=== PATIENT | female | born 2000 | race Caucasian/White ===

== ENCOUNTER 2021-03-04 19:52 | Emergency (ER) | payer OTHER, SELFPAY ==
[2021-03-04 19:52] VITALS: BP 117/74; PULSE 126; RESP 18; TEMP 36.8; O2SAT 98; BMI 18.3
--- NOTE | 2021-03-04 20:13 | EKG12_ITS ---
Test Reason : DYSRHYTHMIA Blood Pressure : / mmHG Vent. Rate : 100 BPM Atrial Rate : 100 BPM P-R Int : 156 ms QRS Dur : 066 ms QT Int : 328 ms P-R-T Axes : 072 084 063 degrees QTc Int : 423 ms Normal sinus rhythm Normal ECG Confirmed by AMPARO QURESHI, JUAN PABLO ([id number]), visual effects editor DENNIS BRIZUELA ([id number]) on 03/05/2021 10:12:37 AM Referred By: KIM Confirmed By:JUAN PABLO CHRISTENSEN MD
--- NOTE | 2021-03-04 20:14 | ED.VIS.DYS ---
HPI History of Present Illness Chief Complaint: Shortness of Breath Detail of Chief Complaint: Shortness of breath Informant: patient Narrative Narrative: Patient presents to the emergency department complaint of shortness of breath that started few hours ago with gradual onset. Patient states she came in from outside and noticed that she was quite winded. She denies any chest pain. She does feel like her heart is racing. No history of anxiety or panic attacks. Patient states that she had COVID about 3 weeks ago and has since tested negative. Patient is never had symptoms like this before. No history of asthma. Patient is vaccinated against COVID. She does not smoke. PFSH PFS Medical History no medical history Allergy/AdvReac Type Severity Reaction Status Date / Time No Known Allergies Allergy Verified 03/04/21 19:54 Surgical History no surgical history Social History Smoking Status: Never smoker ROS [facility] ED Constitutional Constitutional ED: Reports systems reviewed and no addt'l complaints, except as documented; Denies body ache(s), change in weight or chills Eyes Eyes: Denies acute decrease in peripheral vision, change in vision, double vision or loss of vision ENT ENT ED: Reports none; Denies ear pain, lip swelling, loss taste/smell, neck pain, otalgia or sore throat Cardiovascular Cardiovascular: Reports none and racing heartbeat; Denies abdominal pain, chest pain with activity, leg edema, lightheadedness, palpitations, rapid heart rate or syncope Respiratory/Chest Respiratory/Chest: Reports none and dyspnea; Denies change in mental status, dry cough, hemoptysis, shortness of breath at rest or shortness of breath with exertion Gastrointestinal Gastrointestinal: Reports none; Denies abdominal pain, change in stool character, diarrhea, hematemesis, hematochezia, melena, rectal bleeding or vomiting Genitourinary Genitourinary ED: Reports none; Denies abdominal discomfort, anuria, dysuria, genital pain or polyuria Musculoskeletal Musculoskeletal: Reports none; Denies arthralgias, back pain, difficulty walking, extremity pain, muscle weakness or myalgias Integumentary Reports none; Denies abscess or rash Neurologic Neurologic: Reports none; Denies abnormal gait, confusion, focal weakness, frequent falls, headache(s), loss of vision, numbness, paresthesias, radicular pain, vertigo or weakness Psychiatric Psychiatric: Reports systems reviewed and no addt'l complaints, except as documented and none; Denies behavioral changes, confusion, difficulty concentrating, hallucinations, suicidal ideation, tactile hallucinations or visual hallucinations Endocrine Endocrinology: Denies none, cold intolerance, excessive sweating, fatigue or heat intolerance Hematologic/Lymphatic Hematologic/Lymphatic: Reports none; Denies anemia, easy bleeding or easy bruising Allergic/Immunologic Allergic/Immunologic ED: Denies as per HPI, none, lip swelling, mouth swelling, throat swelling, tongue swelling or hives EXAM Physical Exam Const Vital Signs: 03/04/21 19:52 03/04/21 20:34 Temperature 98.2 F Temperature Source Temporal Pulse Rate 126 H Respiratory Rate 18 Respiratory Effort Short of Breath Blood Pressure 117/74 Blood Pressure Mean 88 Pulse Ox 98 Oxygen Delivery Method Room Air Room Air Positive well nourished and well developed General Appearance ED: well developed and NAD HEENT Reports TM's clear and moist mucous membranes normocephalic and atraumatic; Negative for trauma or tenderness Tympanic Membrane ED: Yes TM's clear Eyes PERRL and EOMs intact bilaterally General Eye ED: Negative for pale conjunctiva or scleral icterus Neck no lymphadenopathy, supple and no JVD General: Negative for tenderness Chest Wall inspection of chest normal and palpation of chest normal Chest: Negative for tenderness Resp normal respiratory effort and clear to auscultation bilaterally Effort and Inspection: Negative for respiratory distress or pain with movement Auscultation: Negative for rhonchi, wheezes or diminished lung sounds Cardio S1 normal heart sound, S2 normal heart sound and no murmurs Rate: tachycardic Peripheral Pulses: pulses 2+ throughout GI normal to inspection, nondistended, normoactive bowel sounds, soft to palpation, non-tender, non-distended and no masses Back/Spine no CVA tenderness and no thoracic nor lumbar tenderness Extremity normal to inspection General Extremety ED: Negative for edema General Extremity: Negative for edema Neuro oriented x3, CN's II-XII intact bilaterally, no sensory deficits noted and gait normal Sensorium / Orientation: awake, alert, oriented to person, oriented to place and oriented to time Motor Exam: strength 5/5 throughout and strength abnormal Psych mental status grossly normal Skin no rashes or lesions noted and no wounds MDM MDM MDM Narrative Medical decision making narrative: IV line established on arrival. Patient had an EKG that was unremarkable. No evidence of pericarditis. Patient had normal lab work including D-dimer and troponin. Chest x-ray obtained was unremarkable. Patient did receive an albuterol and Atrovent aerosol x1 and clinically she did feel improved. She seemed to have more movement. At this point I suspect likely reactive airway disease as patient came in from the cold and that is when her symptoms began slowly. She'll be dispensed an albuterol MDI for home. Patient advised to follow-up with her primary care physician within next 3 to 5 days. She is advised to return if increasing shortness of breath or condition should worsen anyway. Lab Data Attestation: I reviewed the patient's lab results. Labs: Laboratory Results - last 24 hr 03/04/21 03/04/21 03/04/21 20:31 20:31 20:31 WBC 9.6 RBC 4.13 L Hgb 12.1 Hct 35.4 L MCV 85.7 MCH 29.3 MCHC 34.2 RDW Std Deviation 36.[address] 11.7 Plt Count 355 MPV 9.6 Immature Gran % (Auto) 0.100 Neut % (Auto) 66.7 Lymph % (Auto) 26.6 [place] % (Auto) 5.3 Eos % (Auto) 0.7 Baso % (Auto) 0.6 Absolute Neuts (auto) 6.4 Absolute Lymphs (auto) 2.56 Nucleated RBC % 0 D-Dimer Quant (PE/DVT) 0.28 Sodium 140 Potassium 3.7 Chloride 107 Carbon Dioxide 26.0 Anion Gap 7 BUN 9 Creatinine 0.67 Estim Creat Clear Calc 106.38 Est GFR (MDRD) Af Amer 145 Est GFR (MDRD) Non-Af 120 BUN/Creatinine Ratio 13.4 Glucose 101 Calcium 9.0 Troponin I High Sens 5 Radiography Chest X-Ray - ED: 1 View Diagnostic Testing: Clinical Impression(s) from Imaging Studies Chest X-Ray 03/04/21 20:36 IMPRESSION: There are no acute findings. Electronically Signed: Rhys Collier MD at 20:49 EST , Service support , 1 view chest x-ray obtained interpreted by myself as no acute disease process. Radiology in agreement. EKG Initial EKG: Attestation: I personally reviewed and interpreted this EKG as follows: Comments: Sinus rhythm with a ventricular rate of 100 bpm with no acute ST segment changes Prior EKG tracings: not available for review Discharge Plan Triage Chief Complaint: Shortness of Breath ED Provider: Ginette Gauthier Dx/Rx/DC Orders Clinical Impression: Acute dyspnea, RAD (reactive airway disease) Instructions: ED Dyspnea, ED Inhaler Use Primary Care Provider: [facility] ,Out of Referrals: [facility] Doctor,Out of [Primary Care Provider] - Activity Restrictions/Additional Instructions: Follow-up with your primary care physician in 3 to 5 days. Return if increasing shortness of breath or condition should worsen anyway. Disposition Disposition: Home, Self Care
[2021-03-04 20:34] VITALS: O2SAT 96
[2021-03-04] MEDS: 0.9% Normal Saline 1,000 ML 150 ML IV (20:35)
--- NOTE | 2021-03-04 20:36 | RAD_ITS ---
STUDY: X-RAY CHEST REASON FOR EXAM: Female, 20 years old. CHEST PAIN dyspnea TECHNIQUE: XR Chest 1 View COMPARISON: None FINDINGS: There is no demonstrated pleural abnormality. Normal size heart. Normal mediastinum and zi. Normal visualized pulmonary arteries. Normal visualized aortic arch and descending thoracic aorta. Normal visualized thoracic spine. Normal visualized ribs, clavicles, and shoulders. There is no demonstrated abnormality of the visualized soft tissue structures of the upper abdomen. RAD/Chest 1 View (Portable) IMPRESSION: There are no acute findings. Electronically Signed: Rhys Collier MD at 20:49 EST , Service support ,
[2021-03-04 20:43] LABS: Absolute Lymphocyte Count 2.56 X10^3/uL (0.83-4.51); Absolute Neutrophil Count 6.4 X10^3/uL (2.0-7.7); Basophil# 0.06 X10^3/uL; Basophil% 0.6 % (0-1); Eosinophil# 0.07 X10^3/uL; Eosinophils% 0.7 % (0-5); Hematocrit 35.4 % (37-47); Hemoglobin 12.1 g/dL (12.0-15.0); Lymphocyte # 2.56 X10^3/ul (0.83-4.51); Lymphocyte % 26.6 % (19-41); Mean Corp Hgb Conc 34.2 g/dL (32-36); Mean Corpuscular Hgb 29.3 pg (27.0-32.0); Mean Corpuscular Volume 85.7 fL (81-99); Mean Platelet Vol. 9.6 fl (6.2-12.0); Monocyte# 0.51 X10^3/uL; Monocyte% 5.3 % (0-10); NRBC Flagged by Analyzer 0 % (0-5); Neutrophil # 6.41 X10^3/uL (2.7-7.7); Neutrophil % 66.7 % (47-70); Platelet Count 355 K/mm3 (150-450); RBC Distribution Width CV 11.7 % (11.6-14.6); RBC Distribution Width SD 36.2 fl (35.1-43.9); Red Blood Count 4.13 M/mm3 (4.2-5.4); White Blood Count 9.6 K/mm3 (4.4-11.0)
[2021-03-04 20:53] LABS: D-Dimer Quantitative (DVT/PE) 0.28 FEU/ug/m (0.27-0.49)
[2021-03-04 21:03] LABS: Anion Gap 7 (5-15); BUN 9 mg/dL (7-18); BUN/Creat Ratio 13.4 RATIO (10-20); Chloride 107 mmol/L (98-107); Creatinine, Serum 0.67 mg/dL (0.55-1.02); EST Glomerular Filtration Rate 120 mL/min (>60); Est Glom Filt Rate - Afr Amer 145 mL/min (>60); Estimated Creatinine Clearance 106.38 ml/min; Glucose 101 mg/dL (74-106); Potassium 3.7 mmol/L (3.5-5.1); Sodium Level 140 mmol/L (136-145); Troponin-I HS 5 pg/mL (3.0-54.0)
[2021-03-04 21:29] VITALS: PULSE 124; RESP 14
[2021-03-04] MEDS: Ipratropium/Albuterol Sulfate 3 ML AMPUL.NEB INHALATION (21:29)
== END 2021-03-04 22:05 | disposition home or self-care (01) ==
PROVIDERS: Emergency Provider Emergency Medicine; Visit Provider Emergency Medicine
DX: J45.909 Unspecified asthma, uncomplicated (principal)
CPT/HCPCS: 71045; 80048; 84484; 85025; 85379; 93005; 94640; 96360; 96361; 99283; J7030

== ENCOUNTER → 2021-03-18 08:37 | Outpatient (CLI) | payer OTHER, SELFPAY ==
--- NOTE | 2021-03-18 08:45 | ECHOD_ITS ---
Reason For Study: DYSPNEA Procedure This was a 2D Doppler, Color Flow transthoracic echocardiogram. Exam performed in department. Left Ventricle Normal LV size. Left ventricular systolic function is normal. The estimated ejection fraction is 60 %. Normal diastology for age. No regional wall motion abnormalities noted. Right Ventricle Normal RV size. Normal systolic function. Atria Normal left atrium. Normal right atrium. Mitral Valve Normal mitral valve. Tricuspid Valve Normal tricuspid valve. Mild tricuspid valve insufficiency. Aortic Valve Trisinus/trileaflet aortic valve. Pulmonic Valve Normal pulmonic valve. Great Vessels Normal aortic root. The pulmonary artery is normal size. Normal inferior vena cava. Pericardium/Pleural No pericardial effusion. MMode/2D Measurements & Calculations LVIDd: 4.4 cm IVSd: 0.72 cm Ao root diam: 2.4 cm LVIDs: 2.7 cm LVPWd: 0.65 cm RVDd: 3.0 cm FS: 38.7 % LAV(MOD-bp): 27.1 ml LVAd ap4: 24.3 cm2 LVAd ap2: 25.9 cm2 LAV(MOD-bp) Indexed: 17.6 ml/m2 LVLd ap4: 7.7 cm LVLd ap2: 7.9 cm LAV(MOD-sp2): 26.3 ml EDV(MOD-sp4): 62.8 ml EDV(MOD-sp2): 69.8 ml LAV(MOD-sp4): 25.9 ml EDV(sp4-el): 64.6 ml EDV(sp2-el): 72.1 ml LVAs ap4: 13.2 cm2 LVAs ap2: 12.3 cm2 LVLs ap4: 6.5 cm LVLs ap2: 6.3 cm ESV(MOD-sp4): 23.3 ml ESV(MOD-sp2): 21.4 ml ESV(sp4-el): 22.8 ml ESV(sp2-el): 20.2 ml EF(MOD-sp4): 62.9 % EF(MOD-sp2): 69.3 % EF(sp4-el): 64.8 % SV(MOD-sp4): 39.5 ml SV(MOD-sp2): 48.4 ml SV(sp4-el): 41.9 ml LA dimension(2D): 2.6 cm LA A4 area: 12.6 cm2 RA A4 area: 11.1 cm2 Time Measurements MV dec time: 0.21 sec Doppler Measurements & Calculations MV E max bryson: 77.3 cm/sec Lat Peak E' Byrson: 20.2 cm/sec Med Peak E' Bryson: 15.7 cm/sec MV A max bryson: 52.3 cm/sec E/E' lat: 3.8 E/E' med: 4.9 MV E/A: 1.5 Ao V2 max: 121.7 cm/sec LV V1 max: 105.4 cm/sec PA V2 max: 92.4 cm/sec Ao max P.9 mmHg LV V1 max P.4 mmHg Ao V2 mean: 81.7 cm/sec Ao mean P.0 mmHg Ao V2 VTI: 22.7 cm TR max bryson: 217.1 cm/sec TR max P.8 mmHg ECHO/Echo Complete Interpretation Summary Normal LV size. Left ventricular systolic function is normal. The estimated ejection fraction is 60 %. Normal diastology for age. Structurally normal valves. Ordering Physician: MARGARITA KO Referring Physician: MARGARITA KO Performed By: Selma Garza RDCS, RVT
--- NOTE | 2021-03-18 12:02 | PFTCOMP ---
COMPLETE PULMONARY FUNCTION TEST INTERPRETATION Brief HPI: Patient is a 20 year old female who presents to [facility] for complete pulmonary function tests secondary to diagnosis of dyspnea. Respiratory therapist reports good effort and reproducible results. Interpretation: Forced expiration spirometry shows a moderately severe large airways obstructive ventilatory defect with an FEV1 of 50% predicted. There is no significant bronchodilator response by strict ATS criteria. Spirograms are of good quality and plateau slowly, indicating slowly emptying areas of the lungs. The respiratory flow volume loop shows potential flattening of the expiratory limb suggestive of a variable intrathoracic obstruction. Lung volumes by body plethysmography show a normal total lung capacity at 4.96 L, 108% predicted. FRC and RV are elevated out of proportion. Lung volume measurements are consistent with air-trapping. Diffusion capacity by carbon monoxide is normal at 87% predicted. The airway resistance is normal. No previous pulmonary function tests were available for review. Impression: Irreversible moderately severe large airways obstructive ventilatory defect resulting in air trapping. Consider chest imaging, if not completed previously, given findings suggestive of variable intrathoracic airway obstruction.
== END ==
DX: R06.00 Dyspnea, unspecified (principal)
CPT/HCPCS: 93306; 94060; 94726; 94729

== ENCOUNTER 2021-03-31 14:31 | Outpatient (CLI) | payer OTHER, SELFPAY ==
[2021-03-31 14:58] LABS: Absolute Lymphocyte Count 1.95 X10^3/uL (0.83-4.51); Absolute Neutrophil Count 6.4 X10^3/uL (2.0-7.7); Basophil# 0.06 X10^3/uL; Basophil% 0.7 % (0-1); Eosinophils% 1.1 % (0-5); Hematocrit 37.9 % (37-47); Hemoglobin 12.5 g/dL (12.0-15.0); Lymphocyte # 1.95 X10^3/ul (0.83-4.51); Mean Corpuscular Volume 91.1 fL (81-99); Mean Platelet Vol. 9.1 fl (6.2-12.0); Monocyte# 0.35 X10^3/uL; Monocyte% 3.9 % (0-10); NRBC Flagged by Analyzer 0 % (0-5); Neutrophil % 72.1 % (47-70); Platelet Count 362 K/mm3 (150-450); RBC Distribution Width CV 11.9 % (11.6-14.6); RBC Distribution Width SD 39.8 fl (35.1-43.9); Red Blood Count 4.16 M/mm3 (4.2-5.4); White Blood Count 8.9 K/mm3 (4.4-11.0)
[2021-04-06 01:06] LABS: Alternaria tenuis 0.49 kU/L (Class I); Ash, White <0.10 kU/L (Class 0); Aspergillus fumigatus <0.10 kU/L (Class 0); Bermuda Grass <0.10 kU/L (Class 0); Birch <0.10 kU/L (Class 0); Black Walnut <0.10 kU/L (Class 0); Cat Hair / Dander,Stand <0.10 kU/L (Class 0); Cedar, Mountain <0.10 kU/L (Class 0); Cladosporium herbarum <0.10 kU/L (Class 0); Cockroach, American <0.10 kU/L (Class 0); Cottonwood <0.10 kU/L (Class 0); D farinae Mite <0.10 kU/L (Class 0); D pteronyssinus <0.10 kU/L (Class 0); Dog Epithelia <0.10 kU/L (Class 0); Elm, American White <0.10 kU/L (Class 0); Immunoglobulin E < 2 IU/mL (6-495); Maple/Box Elder <0.10 kU/L (Class 0); Mulberry, White <0.10 kU/L (Class 0); Oak, White <0.10 kU/L (Class 0); Pecan <0.10 kU/L (Class 0); Penicillium Notatum <0.10 kU/L (Class 0); Pigweed, Rough <0.10 kU/L (Class 0); Ragweed, Short/Common <0.10 kU/L (Class 0); Russian Thistle <0.10 kU/L (Class 0); Sheep Sorrel <0.10 kU/L (Class 0); Sycamore, American <0.10 kU/L (Class 0); Timothy Grass <0.10 kU/L (Class 0)
[2021-04-06 13:27] LABS: Mouse Urine <0.10 kU/L (Class 0)
[2021-04-07 13:16] LABS: Immunoglobulin E < 2 IU/mL (6-495)
== END 2021-03-31 23:59 | disposition home or self-care (01) ==
LOC: PAVLAB 14:32
PROVIDERS: Referring Provider Internal Medicine Critical Care Medicine; Visit Provider Internal Medicine Critical Care Medicine
DX: J45.909 Unspecified asthma, uncomplicated (principal)
CPT/HCPCS: 36415; 82785; 85025; 86003

== ENCOUNTER 2021-04-11 14:10 | Outpatient (RCR) | payer OTHER, SELFPAY ==
--- NOTE | 2021-04-11 16:54 | HP.SP.AD ---
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 Pt's mother is present with her for today's visit. Pt reported that approximately 1 month ago she began to develop shortness of breath and chest tightness. Prior to this, at the end of January, the patient was diagnosed with COVID-19. However, she was fully vaccinated and boosted and therefore never required hospitalization. The patient currently lives in [place] but attends the [facility]. She was evaluated in her family practice office in [place] February 2021, at which time, the patient was started on Brio Ellipta, which was to be used in conjunction with the rescue inhaler she was previously provided. Pulmonary function studies were ordered, which were completed in March 2021 and revealed irreversible moderately-severe large airways obstructive ventilatory defect with associated air trapping. The patient denied a childhood history of asthma. In addition to all of the aforementioned symptoms, she did describe a globus sensation in the feeling of tightness as well in her throat during these episodes. She does not smoke cigarettes, nor has she ever been exposed significantly to secondhand smoke. She currently lives in the dorms [facility] the [facility]. She is not currently employed. For quite some time, the patient was utilizing her rescue inhaler every 4 hours. However, she then went on to develop shakiness, which she attributed to the rescue inhaler. Even though she has backed off on the amount that she is utilizing her rescue inhaler, patient is still experiencing intermittent shakiness. The patient denies any overt wheezing or coughing. Leann is scheduled to participate in a 6-minute walking test and a thoracic CT scan as appropriate. Pt now diagnosed with asthma. Pt reporting symptoms: shortness of breath, occasional pain when swallowing (d/t lump in throat), tightness, shaking, and not being able to walk and talk without becoming SOB. 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 Subjective Voice - Intubation Was the Client intubated: No - Intake Water (ounces): 72 - Alcoholic Beverage Intake Intake: Never Voice Handicap Index (VHI) - VHI VHI Administered: Yes VHI: Patient completed the Voice Handicap Index, which is a 30 item, self administered questionnaire that asks an individual to describe their voice and the effects of their voice on their life. Three subscales cover the areas of functional, emotional, and physical aspects of the voice disorders. Points from the questions can be combined to assign a total score, or they can be combined by subscale. Results for the VHI are as follows: Date: 04/11/21 - VHI Test Functional: Pt reported the following statements as being sometimes significant in her daily life, however suspect d/t Pt's soft spoken voice, Pt reporting these are baseline for her. My voice makes it difficult for people to hear me (2); People have difficulty understanding me in a noisy room (2); People ask me to repeat myself when [id number] (2) = 6 Physical: I run out of air when I talk (3) = 3 Emotional: My voice problem upsets me (2); I feel embarrassed when people ask me to repeat (1) = 3 Total Severity Rating: Mild (0-30) CAPE-V - CAPE-V CAPE-V Administered: Yes Date: 04/11/21 - Overall Severity Overall Severity (n/100): 10 Frequency: Consistent - Roughness Roughness (n/100): 5 Frequency: Consistent - Breathiness Breathiness (n/100): 14 Frequency: Intermittent - Strain Strain (n/100): 2 Frequency: Consistent - Pitch Pitch (n/100): 4 Frequency: Consistent - Loudness Loudness (n/100): 25 Frequency: Intermittent - Comments CAPE-V Purpose -: CAPE-V: The Consensus Auditory-Perceptual Evaluation of Voice (CAPE-V) was developed as a tool for clinical auditory-perceptual assessment of voice. Its primary purpose is to describe the subjective severity of auditory-perceptual attributes of a voice problem, in a way that can be communicated among clinicians. Its secondary purpose is to contribute to hypotheses regarding the anatomic and physiological bases of voice problems and to evaluate the need for additional testing. In terms of severity, Pt is considered MILD between 0-40, MODERATE 40-75, and SEVERE >75. Subjective Clinical Impression - Adult Clinical Impression Pitch breaks: an interruption in the frequency of vibration of the vocal folds or a shift in vocal register during singing. A voice can break up or down in pitch: Present Glottal read: use of the lowest register during phonation (also called pulse register), resulting in an increased closed phase of the vibratory cycle: Present Voice deterioration: reduction of volume or vocal quality with prolonged use: Present Vocal tension: a tightness of the laryngeal musculature during voicing: Present - Non-Phonatory Behaviors/Respiration Reduced loudness or vocal weakness: Present Limited breath support for speech: Present Objective Voice - Objective data Objective Data: Objective data: Sound pressure level (SPL acoustic correlation of vocal loudness) was measured with a sound level meter at a distance of 40 cm from the patient's mouth. Average conversational loudness is 70-80 dB and sustained phonation duration is 15 to 20 seconds for a typical adult. Sustained Phonation Intensity (dB SPL): 23 Sustained Phonatin duration (seconds): 6 Is the individual stimulable to increase vocal intensity: No - Remained at 23 dB despite verbal models and explanation Vocal Intensity at Paragraph Level (dB SPL): 15-20 - Observational Assessment Maximum Phonation Time in seconds: 6 S/Z Ratio: Yes Sustained /s/: 17 Sustained /z/: 10 Ratio: 1:7 Greater than 1:4 (indicates dysfunction): Yes Other Impressions - Comments Loudness -: During conversation in quiet speech therapy room with no distractions or outside noises, Pt was soft-spoken however easy to understand. At the end of evaluation PLASMA TABLE OPERATOR walked with Pt back to the waiting room through this facility's health and wellness gym, which resulted in a louder environment. Pt was significantly more difficult to understand and did not increase the volume of her speech in this louder environment, however suspect Pt may be unable given results of sustained phonation task (SEE ABOVE). Pt's history is significant for participating in high school choir (just graduate last year) so would suspect Pt to sustain phonation in the typical range or longer given hx. Pt's difficulty with sustained phonation compliments reports of her difficulty with fatigue and SOB during walking and talking. Plan - Plan Plan: Will recommend Pt for skilled outpatient speech therapy to address deficits in vocal function characterized by suspected vocal cord dysfunction. Pt would benefit from training in identifying specific instances of vocal cord dysfunction in daily life, providing vocal hygiene solutions, training in diaphragmatic breathing, relaxation techniques, and direct education re: vocal health. Without skilled speech therapy Pt is at risk for pulmonary distress during any physical exertion. - Recommendations Treatment Warranted: Yes - Frequency Frequency: 1x/Week Duration: 6 Weeks - Prognosis Prognosis: Excellent - Goals that are Established: Determination:: Goals will be added/modified as deemed necessary and appropriate. Therapy will be discontinued when results of re-evaluation indicate therapy is no longer needed or lack of progress has been documented. - Goal #1-5 Goal #1: Leann will participate in nasoendoscopy with an ENT to objectively assess vocal cord function and presence of potential vocal pathologies. Goal #2: Leann will establish volitional control of respiration evidenced by utilization of diaphragmatic breathing to sustain ah for 15-20 seconds within 4 weeks with greater than 90% accuracy independently. Goal #3: Leann will complete a weekly log dictating instances of vocal cord dysfunction including time of day, activity, and stress level. Goal #4: Leann will demonstrate independent use of relaxation techniques with greater than 90% acc to reduce vocal fold tension. Education - Patient has Indicated that the Following Identified Educational Needs: None The Patient has indicated that they have no educational or learning abilities that may effect their care.: Yes - Patient Instruction Patient Education: Diagnosis, Treatment Plan, Goals Person Taught: Patient, Primary Caregiver Teaching Method: Discussion Response to teaching: Return demonstration, Verbalize understanding
--- NOTE | 2021-07-29 16:57 | HP.SP.DC_ITS ---
ST Discharge Summary - Discharged: Discharge: JOSE A RODRIGUEZ is a 21 year old female who was seen for initial voice evaluation at [facility] on 04/11/21 secondary to dx of suspected vocal cord dysfunction. Pt only attended initial evaluation which recommended participation in ENT consult, relaxation techniques, breath support for sustained phonation, and keeping a weekly log of VCD occurrences. Pt being discharged from speech therapy caseload on this date, 07/29/21, secondary to additional therapy sessions not being scheduled after evaluation. Thank you for allowing me to participate the care of your Pt. Will reevaluate at Pt?s request following script from physician.
== END 2021-04-11 19:00 | disposition home or self-care (01) ==
LOC: SP 14:10
PROVIDERS: Referring Provider Nurse Practitioner Acute Care; Visit Provider Nurse Practitioner Acute Care
DX: J38.3 Other diseases of vocal cords (principal)
CPT/HCPCS: 92524

== ENCOUNTER 2021-04-17 11:23 | Outpatient (CLI) | payer OTHER, SELFPAY ==
[2021-04-17 11:15] VITALS: PULSE 100; PULSE 102; PULSE 118; PULSE 122; PULSE 124; PULSE 126; O2SAT 100; O2SAT 94; O2SAT 95; O2SAT 97; O2SAT 98; O2SAT 99
--- NOTE | 2021-04-17 15:52 | PCM.PSN.6M ---
PSN 6 Minute Walk Test 6 Minute Walk Test 6 Minute Walk Test: 6 Minute Walk Test PSN:6-Minute Walk Test Start: 04/17/21 12:10 Freq: Status: Active Protocol: RESP.6MINW Document 04/17/21 11:15 HJ (Rec: 04/17/21 12:13 HJ [id number]) 6 Minute Walk Test Date Performed 04/17/21 Time Performed 11:15 Height 5 ft 5 in Weight: 49.895 kg Weight in Pounds 110.[address]: Ruben Greene FIO2 (% Oxygen) 21 Assistive device used: None Pre-test Oxygen Delivery Method Room Air Pulse Ox (%) 100 Pulse Rate (60-100 beats/min) 100 Dyspnea Andrew Scale (0-10) 0 Exertion Andrew Scale (6-20) 6 1st minute Oxygen Delivery Method Room Air Pulse Ox (%) 98 Pulse Rate (60-100 beats/min) 118 H 2nd minute Oxygen Delivery Method Room Air Pulse Ox (%) 99 Pulse Rate (60-100 beats/min) 122 H 3rd minute Oxygen Delivery Method Room Air Pulse Ox (%) 98 Pulse Rate (60-100 beats/min) 124 H 4th minute Oxygen Delivery Method Room Air Pulse Ox (%) 97 Pulse Rate (60-100 beats/min) 124 H 5th minute Oxygen Delivery Method Room Air Pulse Ox (%) 95 Pulse Rate (60-100 beats/min) 126 H 6th minute Oxygen Delivery Method Room Air Pulse Ox (%) 94 Pulse Rate (60-100 beats/min) 126 H Post-test Oxygen Delivery Method Room Air Pulse Ox (%) 100 Pulse Rate (60-100 beats/min) 102 H Dyspnea Andrew Scale (0-10) 0.5 Exertion Andrew Scale (6-20) 6 Full Laps Walked 25 Partial Lap, Number of Tiles Walked 30 Total Distance Walked (ft) 1505 Interpretation Interpretation: The patient was able to ambulate 1505 feet over the course of 6 minutes on room air with no assistive devices or breaks. The patient experienced no significant desaturation, but did have persistent tachycardia throughout testing with a peak heart rate of 126 bpm. These findings are consistent with a cardiovascular limitation exercise tolerance. Recommendations Recommendations: No supplemental oxygen is indicated at this time.
== END 2021-04-17 23:59 | disposition home or self-care (01) ==
LOC: PSN 11:26
PROVIDERS: Visit Provider Internal Medicine Critical Care Medicine
DX: J45.909 Unspecified asthma, uncomplicated (principal)
CPT/HCPCS: 94618

== ENCOUNTER 2021-05-15 06:49 | Outpatient (CLI) | payer OTHER, SELFPAY ==
[2021-05-15] MEDS: Methacholine Chloride 18 ml neb kit INHALATION (07:00)
--- NOTE | 2021-05-15 13:15 | BRONCHALL_ITS ---
Bronchoprovocation Challenge Bronchoprovocation Challenge Bronchoprovocation Challenge: BRONCHOPROVOCATION STUDY INTERPRETATION Brief HPI: Patient is a 20 year old female, currently under the care of Dr. Greene, who presents to [facility] for a bronchoprovocation study secondary to diagnosis of asthma. Respiratory therapist reports good effort and reproducible results. Interpretation: Initial spirometry showed no large airways obstructive ventilatory defect. The patient was then given increasingly concentrated doses of methacholine in a stepwise/standardized fashion, using a modified ATS protocol. The patient?s maximum reduction in FEV1 was 15 percent predicted. Impression: Negative Bronchoprovocation study. This is NOT consistent with the diagnosis of asthma.
== END 2021-05-15 23:59 | disposition home or self-care (01) ==
LOC: PSN 06:52
PROVIDERS: Referring Provider Internal Medicine Critical Care Medicine; Visit Provider Internal Medicine Critical Care Medicine
DX: J45.909 Unspecified asthma, uncomplicated (principal)
CPT/HCPCS: 94070; 95070